=== PATIENT | female | born 1995 | race Caucasian/White ===

== ENCOUNTER 2025-02-26 23:01 | Emergency (ER) | payer OTHER, SELFPAY ==
[2025-02-26 23:02] VITALS: BP 146/117; PULSE 82; RESP 25; TEMP 36.1; O2SAT 100
--- NOTE | 2025-02-26 23:12 | CT_ITS ---
PROCEDURE: ABDOMEN/PELVIS WITHOUT CONT 02/26/2025 REASON FOR EXAM: KIDNEY STONE TECHNIQUE: ABDOMEN/PELVIS WITHOUT CONT Noncontrast technique limits evaluation of the abdominal and pelvic viscera. Coronal and Sagittal reconstruction series were provided. One or more dose reduction techniques were used (e.g., Automated exposure control, adjustment of the mA and/or kV according to patient size, use of iterative reconstruction technique). RADIATION DOSE SUMMARY: CTDlvol: 24 mGy DLP: 1431 mGycm COMPARISON: No FINDINGS: Clear lung bases. Normal heart size. Unremarkable liver, gallbladder, pancreas, spleen, adrenal glands, kidneys. No renal stones. There is very mild left-sided hydronephrosis, and a 2 mm distal left ureteral stone, series 2, image 189. Unremarkable bladder. Normal uterus and ovaries. No retroperitoneal or pelvic adenopathy. No free air. Nondistended bowel. Normal appendix. Multiple diverticula. No acute large bowel findings. No acute chest wall findings. CT/Abdomen/Pelvis without Cont IMPRESSION: 2 mm distal left ureteral stone with very mild hydronephrosis. Reading Location: [place] [id number]
[2025-02-26] MEDS: 0.9% Normal Saline (1000mL) 1,000 ML 250 ML IV (23:32)
[2025-02-26 23:33] VITALS: BMI 49.6
[2025-02-27 00:02] LABS: Anion Gap 17 (5-15); BUN 13 mg/dL (4-19); BUN/Creat Ratio 15.2 RATIO (10-20); Calcium,Total 9.4 mg/dL (7.6-11.0); Carbon Dioxide 19.9 mmol/L (21.0-32.0); Chloride 104 mmol/L (98-108); Estimated Creatinine Clearance 136.02 ml/min (50-250); Glucose 108 mg/dL (70-99); Potassium 3.5 mmol/L (3.3-5.1)
--- NOTE | 2025-02-27 00:06 | EX.ED.DYSGE1 ---
HPI History of Present Illness Chief Complaint: Flank Pain Informant: patient and spouse/S.O. Narrative Narrative: Sudden pain left flank 45 minutes prior to arrival to get out of the shower. States afterwards had some burning with urination. Nausea vomiting afterwards. No history of kidney stones. She started new control therefore no menstrual period for last 2 months. No history of gastric ulcers no kidney injury. No allergies to any medicines. Prior similar symptoms: No PFSH PFSH Medical History GERD (gastroesophageal reflux disease) Acute diverticulitis IBS (irritable bowel syndrome) Home Medications ?Medication ?Instructions ?Recorded ?Last Taken ?Type cefdinir 300 mg capsule 300 mg PO Q12H #14 caps 02/27/25 Unknown Rx ibuprofen 600 mg tablet 600 mg PO Q6H PRN PRN pain #20 02/27/25 Unknown Rx TABLETS ondansetron 4 mg disintegrating 4 mg PO Q8H PRN PRN Nausea #10 tabs 02/27/25 Unknown Rx tablet oxycodone-acetaminophen 5 mg-325 1 tab PO Q6H PRN PRN Pain 3 days 02/27/25 Unknown Rx mg tablet #12 TABLETS Allergy/AdvReac Type Severity Reaction Status Date / Time No Known Allergies Allergy Verified 02/26/25 23:01 Family History no significant family his Social History Smoking Status: Never smoker ROS ROS ED Constitutional Constitutional ED: Denies chills, fever(s) or sweats ENT ENT ED: Denies sore throat Cardiovascular Cardiovascular: Denies chest pain, leg edema, palpitations or racing heartbeat Respiratory/Chest Respiratory/Chest: Denies cough, dyspnea or dyspnea on exertion Gastrointestinal Gastrointestinal: Reports nausea and vomiting; Denies abdominal pain or diarrhea Genitourinary Genitourinary ED: Reports dysuria; Denies hematuria or urinary frequency Musculoskeletal Musculoskeletal: Reports back pain; Denies extremity pain or neck pain Integumentary Denies rash or wounds Neurologic Neurologic: Denies headache(s), paresthesias or weakness EXAM Physical Exam Const Vital Signs: 02/26/25 23:02 02/27/25 01:01 Temperature 97 F L Temperature Source Temporal Pulse Rate 82 85 Respiratory Rate 25 H 18 Blood Pressure 146/117 H 149/81 H Blood Pressure Mean 126 103 Pulse Ox 100 99 Oxygen Delivery Method Room Air Room Air Positive well nourished and well developed Constitutional Narrative: Lying on her right side actively vomiting. No hematemesis. General Appearance ED: well developed HEENT Reports moist mucous membranes normocephalic and atraumatic Eyes General Eye ED: Yes normal appearance of both eyes Neck full ROM Chest Wall Chest: Negative for tenderness Resp normal respiratory effort and normal air movement Effort and Inspection: symmetric chest movement; Negative for respiratory distress Cardio regular rate, regular rhythm and no murmurs Peripheral Pulses: pulses 2+ throughout GI normal to inspection, nondistended, normoactive bowel sounds and non-tender Palpation: Negative for guarding or rebound tenderness present Back/Spine Back/Spine Narrative: Tender palpation left flank no rash. Extremity normal to inspection General Extremety ED: Negative for edema or tenderness General Extremity: Negative for edema Neuro oriented x3 and no sensory deficits noted Sensorium / Orientation: awake and alert Skin no rashes or lesions noted and no wounds MDM MDM MDM Narrative Medical decision making narrative: Interventions / MDM: Differential diagnosis: Kidney stone, renal colic, urinary tract infection Diagnosis considered but do not suspect: Colitis however CT negative. My EKG interpretation: N/A Imaging independently reviewed and interpreted by myself: CT abdomen pelvis: 2 mm distal ureteral stone mild hydro. External documents reviewed: N/A Test considered but not ordered:N/A ED course: Sudden left flank pain with vomiting with dysuria. No history of kidney stones. Soft abdomen exam. IV established for labs and urine. Fluids Zofran morphine Toradol ordered. Flank CT for further evaluation. 0034: Clinically much better still has pain we will redosed with morphine. Creatinine 0.88. Pending CBC pending urine results. CT scan positive for 2 mm ureteral stone. 0125: Clinically feeling much better. Urine showed signs of infection. She is ordered for IV Rocephin. Vitals remained stable afebrile. No urology coverage currently. History of decision making with the patient and significant other. Will reevaluate after IV antibiotics. If clinically stable can discharge with meds to bed with strict return precautions and follow-up with urology. If she becomes symptomatic again, will likely require transfer. They both understand and agrees with current plan. Re-evaluation: stable Disposition discussed with patient/family/significant other: Patient and significant other Case discussed with consulting clinician: N/A This note was generated with [employer] dictation software. It may contain incorrect words, spelling, and punctuation that were not noted in checking the note before signing. Lab Data Attestation: I reviewed the patient's lab results. Labs: Laboratory Results - last 24 hr 02/26/25 02/27/25 23:34 00:08 WBC 16.7 H RBC 4.75 Hgb 13.7 Hct 41.7 MCV 87.8 MCH 28.8 MCHC 32.9 RDW Std Deviation 42.9 RDW Coeff of Abhijeet 13.2 Plt Count 435 MPV 10.3 Immature Gran % (Auto) 0.600 Neut % (Auto) 55.3 Lymph % (Auto) 34.8 [place] % (Auto) 7.5 Eos % (Auto) 1.3 Baso % (Auto) 0.5 Absolute Neuts (auto) 9.3 H Absolute Lymphs (auto) 5.82 H Nucleated RBC % 0 Sodium 141 Potassium 3.5 Chloride 104 Carbon Dioxide 19.9 L Anion Gap 17 H BUN 13 Creatinine 0.88 Estim Creat Clear Calc 136.02 Est GFR (MDRD) Non-Af 91 BUN/Creatinine Ratio 15.2 Glucose 108 H Calcium 9.4 Urine Color Yellow Urine Clarity Sl Cldy Urine pH 7.0 Ur Specific [place] 1.010 Urine Protein 30 H Urine Glucose (UA) Normal Urine Ketones Negative Urine Occult Blood 150 H Urine Nitrite Negative Urine Bilirubin Negative Urine Urobilinogen Normal Ur Leukocyte Esterase 500 H Urine RBC 0-5 SEEN Urine WBC 25-50 SEEN Ur Squamous Epith Cells 10-25 SEEN Urine Bacteria 2+ Urine Mucus 0 SEEN Radiography Diagnostic Testing: Clinical Impression(s) from Imaging Studies Abdomen/Pelvis CT 02/26/25 23:12 IMPRESSION: 2 mm distal left ureteral stone with very mild hydronephrosis. Reading Location: [place] [id number] Discharge Plan Triage Chief Complaint: Flank Pain ED Provider: Gera Ledesma Dx/Rx/DC Orders Clinical Impression: Kidney stone on left side, Renal colic on left side, Nausea & vomiting, UTI (urinary tract infection) Instructions: UTIs, ED Kidney Stone with Pain Prescriptions: New oxycodone-acetaminophen 5-325 mg tablet 1 tab PO Q6H PRN PRN (Reason: Pain) 3 Days Qty: 12 0RF ibuprofen 600 mg tablet 600 mg PO Q6H PRN PRN (Reason: pain) Qty: 20 0RF ondansetron 4 mg tablet,disintegrating 4 mg PO Q8H PRN PRN (Reason: Nausea) Qty: 10 0RF cefdinir 300 mg capsule 300 mg PO Q12H Qty: 14 0RF Primary Care Provider: Ramin Victor Referrals: Ramin Victor MD [Primary Care Provider] - Micha Rodriguez MD [Med Staff - Active Staff] - 1 Week Activity Restrictions/Additional Instructions: You have a 2 mm left distal ureteral stone. Strain your urine. Possible urinary tract infection with culture pending. Take and finish antibiotics prescribed. Take medications for symptom control. You develop fevers worsening symptoms, return to the ED for reevaluation. Follow-up with urology for outpatient evaluation. Print Language: Bahamian Disposition Disposition: Home, Self Care Discharge Date/Time: 02/27/25 02:05
[2025-02-27 00:15] LABS: Mucous, Urine 0 SEEN /hpf (<or=2+)
[2025-02-27 00:19] LABS: Glucose, Dipstick Normal (Normal); Ketone-Dipstick Negative (Negative); Leukocyte Esterase-Dipstick 500 /ul (Negative); Nitrite-Dipstick Negative (Negative); Occult Blood-Urine 150 /ul (Negative); Protein-Dipstick 30 mg/dl (Negative); Specific Gravity, Urine 1.010 (1.002-1.030); Urine Bilirubin Dipstick Negative (Negative)
[2025-02-27 00:33] LABS: Hematocrit 41.7 % (37-47); Hemoglobin 13.7 g/dL (12.0-15.0); Immature Granulocytes Count 0.100 X10^3/uL (0.0-0.0); Mean Corp Hgb Conc 32.9 g/dL (32-36); Mean Corpuscular Volume 87.8 fL (81-99); Mean Platelet Vol. 10.3 fl (6.2-12.0); NRBC Flagged by Analyzer 0 % (0-5); POSITIVE DIFFERENTIAL YES; Platelet Count 435 K/mm3 (150-450); RBC Distribution Width CV 13.2 % (11.6-14.6); RBC Distribution Width SD 42.9 fl (35.1-43.9); Red Blood Count 4.75 M/mm3 (4.2-5.4); White Blood Count 16.7 K/mm3 (4.4-11.0)
[2025-02-27 00:36] LABS: Color, Urine Yellow (Yellow)
[2025-02-27 01:01] VITALS: BP 149/81; PULSE 85; RESP 18; O2SAT 99
[2025-02-27 01:21] LABS: Squamous Epithelial Cells - UA 10-25 SEEN /hpf (5-10)
[2025-02-27 01:24] LABS: Red Blood Cells-Urine 0-5 SEEN /hpf (0-5)
[2025-02-27 02:05] VITALS: BP 124/58; PULSE 72; RESP 16; TEMP 36.4; O2SAT 94
== END 2025-02-27 02:05 | disposition home or self-care (01) ==
PROVIDERS: Emergency Provider Emergency Medicine; PCP Internal Medicine; Visit Provider Emergency Medicine
DX: R11.2 Nausea with vomiting, unspecified (principal); N23 Unspecified renal colic; N39.0 Urinary tract infection, site not specified; N13.2 Hydronephrosis with renal and ureteral calculous obstruction
CPT/HCPCS: 74176; 80048; 81001; 85025; 87086; 87088; 96361; 96365; 96375; 96376; 99284; A4216; J2405